=== PATIENT | male | born 1930 | race Caucasian/White ===

== ENCOUNTER 2016-07-07 16:13 | Emergency (ER) | payer MEDICARE, OTHER ==
[~2016-07-07] VITALS: Ht 167.6 cm; Wt 64.4 kg
[2016-07-07 16:19] VITALS: TEMP 98.7; Ht 167.6 cm; Wt 64.4 kg
--- NOTE | 2016-07-07 16:35 | NUR ---
LAB AT BEDSIDE FOR BLOOD DRAW.
[2016-07-07] MEDS ORDERED: MIRT15TA6 PO (16:39)
[2016-07-07] MEDS ORDERED: QUET50TA PO (16:39)
[2016-07-07] MEDS ORDERED: VALS1TAB2 PO (16:39)
[2016-07-07] MEDS ORDERED: ROSU20TA PO (16:40)
--- NOTE | 2016-07-07 16:42 | NUR ---
XRAY PORTABLE XRAY AT BEDSIDE.
[2016-07-07] MEDS ORDERED: UBID100C30 PO (16:45)
[2016-07-07] MEDS ORDERED: QUET200T PO (16:45)
[2016-07-07] MEDS ORDERED: LEVO137T23 PO (16:45)
[2016-07-07] MEDS ORDERED: ASPI-1085 PO (16:45)
[2016-07-07] MEDS ORDERED: [UNRECOGNIZED DRUG - CODE] PO (16:45)
[2016-07-07] MEDS ORDERED: GUAI600T PO (16:45)
[2016-07-07 16:47] LABS: BASOPHILS % (AUTO) 0.4 % (0-2); EOSINOPHILS # (AUTO) 0.1 T/MM3 (0-0.5); EOSINOPHILS % (AUTO) 1.1 % (0-4); HCT - HEMATOCRIT 27.4 % (41-53); HGB - HEMOGLOBIN 8.8 GM/DL (13.5-17.5); IMMATURE GRANULOCYTE # (AUTO) 0.03 T/MM3 (0.00-0.03); IMMATURE GRANULOCYTE % (AUTO) 0.4 % (0.0-0.5); LYMPHOCYTES # (AUTO) 1.5 T/MM3 (1-4.8); LYMPHOCYTES % (AUTO) 17.6 % (23-45); MEAN CORPUSCULAR HGB 27.4 UUG (26-34); MEAN CORPUSCULAR HGB CONC(MCHC 32.1 GM/DL (31-37); MEAN CORPUSCULAR VOLUME 85.4 UM3 (80-100); MONOCYTES # (AUTO) 0.7 T/MM3 (0-0.8); MONOCYTES % (AUTO) 8.7 % (0-9.0); NEUTROPHILS #(AUTO)-ABSOLUTE 5.9 T/MM3 (1.8-7.7); NEUTROPHILS % (AUTO) 71.8 % (33-66); RED BLOOD COUNT 3.21 M/MM3 (4.50-5.90); WBC - WHITE BLOOD COUNT 8.3 T/MM3 (4.5-11.0)
[2016-07-07 16:55] LABS: ACETAMINOPHEN < 10 UG/ML (10-30); ANION GAP 11 MEQ/L (5-15); BUN/CREATININE RATIO 27 RATIO (6-26); CALCIUM 9.1 MG/DL (8.4-10.2); CHLORIDE 101 MEQ/L (98-107); CO2 - CARBON DIOXIDE 29 MEQ/L (22-30); CREATININE 1.2 MG/DL (0.8-1.5); ETHANOL <10 MG/DL (<10); GLOMERULAR FILTRATION RATE 57; GLUCOSE 96 MG/DL (75-110); POTASSIUM 4.3 MEQ/L (3.6-5); SALICYLATE < 1.0 MG/DL (2-20); SODIUM 141 MEQ/L (134-144)
--- NOTE | 2016-07-07 17:28 | ERPDOC ---
Departure Disposition Decision Date: July 07, 2016 Disposition Decision Time: 18:09 Disposition: 02 TO [facility] ACUTE CARE Impression Impression Impression: Primary Impression: Flail chest Encounter type: initial encounter Fracture type: closed Qualified Codes: S22.5XXA - Flail chest, initial encounter for closed fracture Additional Impressions: Rib fractures Encounter type: initial encounter Rib fracture type: multiple ribs Fracture type: closed Laterality: right Qualified Codes: S22.41XA - Multiple fractures of ribs, right side, initial encounter for closed fracture Normocytic anemia Dementia Dementia type: unspecified type Dementia behavioral disturbance: without behavioral disturbance Qualified Codes: F03.90 - Unspecified dementia without behavioral disturbance Severity: Severe Condition: Improved Seen By: Physician only Problems/Meds/Labs Reviewed?: Yes Medications reviewed and manag: Yes Follow up care ordered?: Yes Mental Status: Alert, Confused HPI - Psychosocial General Chief Complaint: Psychiatric Problems Stated Complaint: [facility]CH [facility] Time Seen by MD: 16:15 Source: RN/MD Exam Limitations: dementia HPI - Psychosocial Initial Comments 86yo man referred to the ER for medical clearance. Pt [facility], but needs medical clearance. Pt has numerous falls. Occurred At: home Onset: Constant Severity: moderate Hx of Similar Symptoms: Yes Allergies: Coded Allergies: telithromycin (Verified Allergy, Unknown, 07/07/16) tamsulosin (Verified Adverse Reaction, Severe, agitation, 07/07/16) zolpidem (Verified Adverse Reaction, Severe, sleeplessness, 07/07/16) Past History Unable to Obtain PMH Due to: dementia Review of Systems Unable to Obtain ROS Due to: dementia Physical Exam General General Nourishment: well nourished, well developed, appears stated age, no acute distress, adult, thin General Body Habitus: well groomed Vitals and Pain First Documented Vital Signs Date Time Temp Pulse Resp B/P Pulse Ox O2 Delivery O2 Flow Rate FiO2 07/07/16 16:19 98.7 69 18 121/58 96 Room Air Weight: Kilograms: 64.400 Height (feet): 5 Height (inches): 6.00 Triage Pain Scale: RN VS reviewed by Provider: Yes Eyes (brief) Eyes Brief: found: EOMI, PERRL, not found: scleral icterus Comments B/l cataract removal ENMT (brief) ENMT Brief: FOUND: TM clear, TM good light reflex, ear canals clear, mucosa moist, normal tonsils Neck (brief) Neck: FOUND: trachea midline, NOT FOUND: JVD, adenopathy, thyromegaly Respiratory (brief) Respiratory: FOUND: clear all naylor, equal bilaterally, symmetrical, NOT FOUND : rales, wheezes Cardiovascular (brief) Cardiac: FOUND: regular rate, regular rhythm, NOT FOUND: click, gallop, murmur , pedal edema, peripheral edema, rub Capillary Refill: <2 sec Pulses: all distal extremities, equal, strong Abdomen (brief) Abdominal Brief: FOUND: bowel normo active x4, soft, NOT FOUND: distended, hepatosplenomegaly, pulsatile mass, tender Lymphatic (brief) Lymphatic Brief: NOT FOUND: adenopathy, lymphedema Musculoskeletal (brief) Musculoskeletal Brief: NOT FOUND: deformity, loss of motion, spasm, tenderness Integumentary (brief) Integumentary Brief: FOUND: pink, warm Comments Numerous contusions in various stages of healing. Neurologic (brief) Neurological Brief: FOUND: CN w/o gross def to obs, DTR 2/4 all extremities, motor-no gross deficits, sensory-no gross deficits, NOT FOUND: Babinski, gait w/ o gross def to obs Psychiatric (brief) Psychiatric Brief: FOUND: alert, normal affect, oriented Differential Diagnoses Considering: Anxiety, Delirium, Dementia, Depression, Hallucinations, Acute Psychosis Progress Results/Orders Orders Procedure Category Date Status Time Nothing By Mouth (Ed EDM 07/07/16 Transmitted Only) 16:15 Cbc W/Auto LAB 07/07/16 Complete Diff-Reflex Manual 16:15 Bmp - Basic Metabolic LAB 07/07/16 Complete Panel 16:15 Ethanol LAB 07/07/16 Complete 16:15 Drug Screen LAB 07/07/16 [place] [facility] [place] Acetaminophen LAB 07/07/16 Complete 16:15 Salicylate LAB 07/07/16 Complete 16:15 Ua, Dip Wreflex LAB 07/07/16 Logged Microsc & Facilities Director 16:15 Tsh - Thyroid Stim LAB 07/07/16 Complete Hormone 16:15 Chest 1 View RAD 07/07/16 Taken 16:15 Ribs Right RAD 07/07/16 Taken 17:25 EKG EKG 07/07/16 Logged Lab Results Laboratory Tests Test 07/07/16 16:39 White Blood Count 8.3T/MM3 Red Blood Count 3.21M/MM3 Hemoglobin 8.8GM/DL Hematocrit 27.4% Mean Corpuscular Volume 85.4UM3 Mean Corpuscular Hemoglobin 27.4UUG Mean Corpuscular Hemoglobin Concent 32.1GM/DL RDW Standard Deviation 42.3FL Platelet Count 306T/MM3 Mean Platelet Volume 9.0UM3 Immature Granulocyte % (Auto) 0.4% Neutrophils (%) (Auto) 71.8% Lymphocytes (%) (Auto) 17.6% Monocytes (%) (Auto) 8.7% Eosinophils (%) (Auto) 1.1% Basophils (%) (Auto) 0.4% Absolute Immature Granulocyte (auto 0.03T/MM3 Absolute Neutrophils (auto) 5.9T/MM3 Absolute Lymphocytes (auto) 1.5T/MM3 Absolute Monocytes (auto) 0.7T/MM3 Absolute Eosinophils (auto) 0.1T/MM3 Absolute Basophils (auto) 0.0T/MM3 Turbidity < 20 Sodium Level 141MEQ/L Potassium Level 4.3MEQ/L Chloride Level 101MEQ/L Carbon Dioxide Level 29MEQ/L Anion Gap 11MEQ/L Blood Urea Nitrogen 32.0MG/DL Creatinine 1.2MG/DL Glomerular Filtration Rate Calc 57 BUN/Creatinine Ratio 27RATIO Glucose Level 96MG/DL Calculated Osmolality 278MOSM/KG Calcium Level 9.1MG/DL Icterus Index < 2 Thyroid Stimulating Hormone (TSH) 6.43MIU/L Chemistry Specimen Hemolysis < 15 Salicylates Level < 1.0MG/DL Acetaminophen Level < 10UG/ML Alcohol, Quantitative <10MG/DL EKG EKG : Rate: 60-100 Rhythm: sinus [place]: normal QRS: normal Intervals: normal ST/T: normal Interpreted by: signing physician Consult/PCP Consult/PCP #1: Physician Contacted: Robert Cruz Time Called: 17:15 Type of discussion: Phone Consult/PCP Consult/PCP #2: Physician Contacted: Hospitalist Time Called: 17:43 Time of first response: 17:50 Type of discussion: Phone Consult/PCP Discussion Details Recommends txfr to trauma service. Consult/PCP #3: Physician Contacted: [facility] Time Called: 18:00 Time of first response: 18:05 Type of discussion: Admit Discussion/PCP Discussion Details Dr. Gallardo - trauma accepts for txfr. Recommends having EOL discussions with prior to txfr. Xray Xray : Xray: CXR Portable Interpretation: Abnormal (Posteriorly fx'ed right 4-8 ribs.), Interpreted by NAUN Ford DO July 07, 2016 17:28
--- NOTE | 2016-07-07 17:29 | NUR ---
PROVIDER DR. TORRES AT BEDSIDE.
[2016-07-07 17:36] LABS: THYROID STIM HORMONE-TSH 6.43 MIU/L (0.47-4.68)
--- NOTE | 2016-07-07 17:40 | NUR ---
RADIOLOGY PT TO RADIOLOGY BY CART AT THIS TIME.
--- NOTE | 2016-07-07 17:53 | NUR ---
RETURN PT RETURNED FROM RADIOLOGY BY CART AT THIS TIME.
--- NOTE | 2016-07-07 18:19 | NUR ---
PROVIDER DR. TORRES AT BEDSIDE TO SPEAK WITH SPOUSE.
--- NOTE | 2016-07-07 18:54 | NUR ---
REPORT CALLED TO EDGARDO, TRAUMA RN AT [facility]. DENIES QUESTIONS. ADVISED ETA OF 184.
--- NOTE | 2016-07-07 18:55 | NUR ---
[facility] REQUESTED FOR TRANSFER TO [facility] AT THIS TIME.
--- NOTE | 2016-07-07 19:06 | NUR ---
EMS ARRIVED TO ER, TB. REPORT GIVEN TO EMS PERSONNEL AT THIS TIME, DENY QUESTIONS.
[2016-07-07 19:11] VITALS: BP 143/75; PULSE 76; RESP 18; O2SAT 93
--- NOTE | 2016-07-07 19:11 | NUR ---
TRANSFER PT EXITS ER BY CART PER [facility] FOR TRANSFER AT THIS TIME.
--- NOTE | 2016-07-08 07:57 | DI ---
Indication: ITS.REASON: Posteriorly fx'ed ribs; eval for flail PROCEDURE: RIBS RIGHT: Encounter: Initial Comparison: None Findings: There are displaced fractures of the right third and fifth through 11th lateral ribs. The 7th through 10th ribs appear to be fractured in at least two separate places which raises concern for a flail segment. No gross pneumothorax identified. Scoliosis and degenerative change in the spine. Impression: Multiple rib fractures with concern for a flail segment. .
--- NOTE | 2016-07-08 08:01 | DI ---
Indication: ITS.REASON: Medical clearance PROCEDURE: CHEST 1 VIEW: Encounter: Initial Comparison: Rib radiographs from the same time Findings: No pneumothorax. Portions of the lung apex are obscured by overlapping soft tissues. Trace pleural effusions. No focal consolidative pneumonia. Cardiac silhouette is mildly enlarged. Mediastinal contours are normal. Multiple right rib fractures better evaluated on the dedicated rib radiographs. Impression: Multiple right rib fractures. .
[2016-07-08] MEDS ORDERED: MEMA28CA PO (18:25)
[2016-07-08] MEDS ORDERED: ATRO2DRO4 SL (18:25)
[2016-07-08] MEDS ORDERED: OXYB5SYR2 PO (18:25)
[2016-07-08] MEDS ORDERED: TRAM50TA4 PO (18:25)
== END 2016-07-07 19:11 | disposition short-term general hospital (02) ==
LOC: ED 16:13
DX: Z04.6 Encounter for general psychiatric examination, requested by authority (principal); F03.90 Unspecified dementia, unspecified severity, without behavioral disturbance, psychotic disturbance, mood disturbance, and anxiety; S22.5XXA Flail chest, initial encounter for closed fracture; D64.9 Anemia, unspecified; W19.XXXA Unspecified fall, initial encounter; Y93.9 Activity, unspecified; Y92.009 Unspecified place in unspecified non-institutional (private) residence as the place of occurrence of the external cause; Y99.8 Other external cause status; Z79.82 Long term (current) use of aspirin; Z79.899 Other long term (current) drug therapy
CPT/HCPCS: 36415; 80048; 80307; 84443; 85025; 93005

== ENCOUNTER 2016-07-08 17:00 | Inpatient (IN) ==
[2016-07-14] MEDS ORDERED: ACETAMINOPHEN 325 MG TABLET PO PRN (10:29)
[2016-07-14] MEDS ORDERED: HALOPERIDOL 0.5 MG TABLET PO PRN (10:39)
[2016-07-14] MEDS ORDERED: LORazepam 0.5 MG TABLET PO PRN (10:40)
[2016-07-14] MEDS ORDERED: TRAMADOL 50 MG TABLET PO PRN (10:43)
[2016-07-15] MEDS ORDERED: HALOPERIDOL 5 MG/ML INJECTION IM PRN (05:00)
[2016-07-15] MEDS ORDERED: LORazepam 0.5 MG TABLET PO PRN (05:00)
[2016-07-15] MEDS ORDERED: ATROPINE 1% DROPS SL PRN (05:00)
[2016-07-15] MEDS ORDERED: HALOPERIDOL 0.5 MG TABLET PO PRN (05:00)
[2016-07-15] MEDS ORDERED: TRAMADOL 50 MG TABLET PO PRN (05:00)
[2016-07-15] MEDS ORDERED: ACETAMINOPHEN 325 MG TABLET PO PRN (05:00)
[2016-07-15] MEDS ORDERED: LEVOTHYROXINE 137 MCG TABLET PO SCH (06:30)
[2016-07-15] MEDS ORDERED: MEMANTINE 10 MG TABLET PO SCH (09:00)
[2016-07-15] MEDS ORDERED: OMEGA-3 ACID ESTERS 1 GM CAPSULE PO SCH (09:00)
[2016-07-15] MEDS ORDERED: DIVALPROEX SPRINKLE 125 MG CAPSULE PO SCH (09:00)
[2016-07-15] MEDS ORDERED: GUAIFENESIN LA 600 MG TABLET PO SCH (09:00)
[2016-07-15] MEDS ORDERED: COENZYME Q10 200 MG PO SCH (09:00)
[2016-07-15] MEDS ORDERED: FINASTERIDE 5 MG TABLET PO SCH (09:00)
[2016-07-15] MEDS ORDERED: QUETIAPINE 200 MG TABLET PO SCH (21:00)
[2016-07-15] MEDS ORDERED: MIRTAZAPINE 30 MG TABLET PO SCH (21:00)
[2016-07-19] MEDS ORDERED: ROSUVASTATIN 20 MG TABLET PO SCH (21:00)
== END 2016-07-14 19:40 | disposition short-term general hospital (02) | DRG 884 ==
LOC: GEN 17:00
PROVIDERS: ADMIT Psychiatry & Neurology Psychiatry; ATTEND Psychiatry & Neurology Psychiatry

== ENCOUNTER 2016-07-14 19:35 | Observation (INO) ==
[2016-07-15] MEDS ORDERED: NS 1,000 ML IV SCH (05:00)
[2016-07-15] MEDS ORDERED: TRAMADOL 50 MG TABLET PO PRN (05:00)
[2016-07-15] MEDS ORDERED: ONDANSETRON 4 MG/2 ML INJECTION IVP PRN (05:00)
[2016-07-15] MEDS ORDERED: ATROPINE 1% DROPS SL PRN (05:00)
[2016-07-15] MEDS ORDERED: VANCOMYCIN 250mg/5ml ORAL LIQ PO SCH (09:00)
[2016-07-15] MEDS: DIVALPROEX SPRINKLE 125 MG CAPSULE PO SCH ×2 (09:21→21:34)
[2016-07-15] MEDS: LACTOBACILLUS (15B cfu) CAPSULE PO SCH ×3 (09:21→18:04)
[2016-07-15] MEDS: LEVOTHYROXINE 137 MCG TABLET PO SCH (09:21)
[2016-07-15] MEDS: MEMANTINE 10 MG TABLET PO SCH ×2 (09:21→21:34)
--- NOTE | 2016-07-15 10:08 | History & Physical Report ---
<Azul Obrien V - Last Filed: 07/15/16 10:05> History of Present Illness Date: Chief complaint: C-Diff HPI: Angel is an 86-year-old male with known history of dementia [facility] for evaluation of behavioral changes. He could prior to this he resided at home with his in [place], [place]. They reported increasing behaviors with combative and impulsiveness. He had suffered multiple falls and was hospitalized at [facility] on as a trauma. He was found to have multiple rib fractures with a questionable flail segment, however, these were ruled out and thought to be old. Once he was medically stable he was discharged and transferred to the [facility]. Yesterday . Patient began to have loose stools including an incontinent stool. He was tested for C. difficile, which was resulted as positive. Given this acute finding, patient was transferred to inpatient medical unit under the care of the hospitalist services overnight. Patient is seen this morning with nursing staff at his side during breakfast. He is alert and makes eye contact, however, does not speak during examination. Nursing staff reports patient has had 1 stool this morning. Review of Systems ROS unobtainable: due to mental status Review of systems: Able to obtain due to dementia PFSH Hypertension Hyperlipidemia BPH Coronary artery disease Hypothyroidism Chronic dysphagia Vitamin B12 deficiency Dementia History of stroke with chronic dysphagia Surgical History: Kidney stone removal. Stress echocardiography 05/31/13. Heart monitor 08/2015. 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 RAF carotid study 09/29/15 Family History: Unable to obtain from patient H&P from 02/2016 indicated that his mother and father both had HTN and CAD. One sibling has Parkinson's. Children are all alive and healthy. Smoking status: Unknown if ever smoked Substance use type: does not use Alcohol intake frequency: does not drink Housing: house Household members: spouse Current occupational status: retired Medications Home Medications Medication Instructions Recorded Confirmed Type Levothyroxine Tab [Synthroid] 137 mcg PO ACB #0 07/07/16 History Mirtazapine 30 mg PO HS #0 07/07/16 History [place]-3 Fatty Acids/Fish Oil [Fish 1,000 mg PO BID #0 07/07/16 History Oil 1,000 mg Softgel] Quetiapine [SEROquel] 200 mg PO HS #0 07/07/16 History Rosuvastatin Calcium [Crestor] 20 mg PO WEEKLY #0 07/07/16 History Ubidecarenone [Co Q10] 100 mg PO DAILY #0 07/07/16 History guaiFENesin [Mucinex] 600 mg PO BID #0 07/07/16 History Atropine Sulfate 1 drop SL PRN #0 07/08/16 History Tramadol HCl 50 mg PO Q6HR PRN #0 tab 07/08/16 History Atropine Sulfate 1 drop SL PRN PRN 07/14/16 07/14/16 History Co Q10 100 mg PO DAILY 07/14/16 07/14/16 History Diovan Hct 80/12.5 0.5 tab PO Q2D 07/14/16 07/14/16 History Fish Oil 1,000 mg Softgel 1,000 mg PO BID 07/14/16 07/14/16 History Levothyroxine Sodium 137 mcg PO ACB 07/14/16 07/14/16 History Memantine HCl [Namenda Xr] 28 mg PO DAILY 07/14/16 07/14/16 History Mirtazapine [Remeron] 30 mg PO HS 07/14/16 07/14/16 History Mucinex 600 mg PO BID 07/14/16 07/14/16 History Oxybutynin Chloride 5 mg PO DAILY 07/14/16 07/14/16 History Quetiapine Fumarate 50 mg PO DAILY 07/14/16 07/14/16 History Quetiapine Fumarate 200 mg PO HS 07/14/16 07/14/16 History Rosuvastatin [Crestor] 20 mg PO WEEKLY 07/14/16 07/14/16 History Tramadol HCl 50 - 100 mg PO Q6H PRN 07/14/16 07/14/16 History Allergies Allergy/AdvReac Type Severity Reaction Status Date / Time telithromycin Allergy Unknown Verified 07/14/16 13:47 tamsulosin AdvReac Severe agitation Verified 07/14/16 13:47 zolpidem AdvReac Severe sleeplessne Verified 07/14/16 13:47 ss Exam Vital Signs: Temp Pulse Resp BP Pulse Ox 96.2 F L 99 18 148/78 H 92 07/15/16 07:12 07/15/16 07:12 07/15/16 07:12 07/15/16 07:12 07/15/16 07:12 Height: 1.42 m Weight: 63.3 kg Body Mass Index: 31.1 - Constitutional Present: no acute distress - Routine HEENT Exam Head: Present: normocephalic Eye: Present: EOMI, PERRL - Routine Neck Exam Present: supple, full ROM - Routine Respiratory Exam Present: CTA bilaterally - Routine Cardiovascular Exam Present: RRR, S1, S2 - Routine Abdominal Exam Present: soft, normoactive bowel sounds, non distended, non tender. Absent: tenderness - Routine Extremities Exam Present: full ROM - Routine Back/Spine/Pelvis Exam Back/Spine: Present: full ROM - Routine Skin Exam Present: intact - Routine Neurological Exam Present: alert, CN II-XII intact - Routine Psychiatric Exam Present: normal affect Results - Labs CBC & Chem 7: 07/15/16 04:54 07/15/16 04:54 Labs: Short CBC 07/15/16 Range/Units 04:54 WBC 6.0 (4.5-11.0) T/MM3 Hgb 8.7 L (13.5-17.5) GM/DL Hct 27.2 L (41-53) % Plt Count 330 (130-400) T/MM3 [facility] 07/15/16 04:54 Sodium 141 Potassium 4.2 Chloride 101 Carbon Dioxide 29 BUN 23.0 H Creatinine 1.1 Glucose 88 Calcium 8.8 Assessment and Plan (1) C. difficile colitis Current visit: Yes Status: Acute (2) HTN (hypertension) Current visit: Yes Status: Chronic (3) Hyperlipemia Current visit: Yes Status: Chronic (4) BPH (benign prostatic hyperplasia) Current visit: Yes Status: Chronic (5) CAD (coronary artery disease) Current visit: Yes Status: Chronic (6) Hx of renal calculi Current visit: Yes Status: Resolved (7) Hearing loss Current visit: Yes Status: Acute (8) Vitamin B12 deficiency Current visit: Yes Status: Chronic (9) Dysphagia Current visit: Yes Status: Chronic (10) Dementia Current visit: Yes Status: Chronic DVT Prophylaxis: SCD's Assessment and Plan: Patient was admitted as an inpatient overnight under the care of telemedicine, Dr. Chou. Generalized contact precautions implemented Patient was started on oral vancomycin for acute treatment as well as probiotics. It is reported that patient did have a recent course of Keflex Did review this morning's laboratory studies white count is normal at 6.0, hemoglobin 8.7 Continue with Seroquel 200 milligrams by mouth at at bedtime for behaviors which was started on the [facility]. Did speak with infectious disease nurse. Patient will need to have 48 hours of continent stools in order to return to [facility]. Will discuss further orders and plan of care with attending, Dr.'s Ferreira Sepsis Assessment - Evaluation Sepsis screening result: No Definite Risk - Focused Exam Vital Signs Temp Pulse Resp BP Pulse Ox 07/15/16 07:12 96.2 F L 99 18 148/78 H 92 Hospital Course Summary Disclaimer: The visit summary below is not to be considered part of the above Progress Note. <Ana Ferreira - Last Filed: 07/15/16 13:33> History of Present Illness Date: Exam Vital Signs: Temp Pulse Resp BP Pulse Ox 98.5 F 61 18 178/77 H 94 07/15/16 11:30 07/15/16 11:30 07/15/16 07:12 07/15/16 11:30 07/15/16 11:30 Height: 1.42 m Weight: 63.3 kg Results - Labs CBC & Chem 7: 07/15/16 04:54 07/15/16 04:54 Labs: Short CBC 07/15/16 Range/Units 04:54 WBC 6.0 (4.5-11.0) T/MM3 Hgb 8.7 L (13.5-17.5) GM/DL Hct 27.2 L (41-53) % Plt Count 330 (130-400) T/MM3 BMP 07/15/16 04:54 Sodium 141 Potassium 4.2 Chloride 101 Carbon Dioxide 29 BUN 23.0 H Creatinine 1.1 Glucose 88 Calcium 8.8 Assessment and Plan Assessment and Plan: S: Pt not really able to communicate well but denies abd pain. O: Gen: alert and awake Abd: non tender, mildly distended Ext: edema, no clubbing A/P: No WBC count elevation, no Cr elevation, mild c. diff infection if present at all, will switch to flagyl as vanc not indicated for mild c. diff Pt seen and examined independently and plan of care discussed with [facility]. Sepsis Assessment - Focused Exam Vital Signs Temp Pulse Resp BP Pulse Ox 07/15/16 11:30 98.5 F 61 178/77 H 94 07/15/16 07:12 96.2 F L 99 18 148/78 H 92 Hospital Course Summary Disclaimer: The visit summary below is not to be considered part of the above Progress Note.
[2016-07-15] MEDS: MetroNIDAZOLE 500 MG TABLET PO SCH (18:04)
[2016-07-15] MEDS: NS 1,000 ML IV SCH (18:05)
[2016-07-15] MEDS: OXYCODONE/APAP 5 MG/325 MG TABLET PO PRN (21:35)
[2016-07-15] MEDS ORDERED: QUETIAPINE 200 MG TABLET PO SCH (22:00)
[2016-07-15] MEDS ORDERED: MIRTAZAPINE 30 MG TABLET PO SCH (22:00)
[2016-07-15] MEDS ORDERED: FINASTERIDE 5 MG TABLET PO SCH (22:00)
[2016-07-16] MEDS: NS 1,000 ML IV SCH (04:59)
[2016-07-16] MEDS: LEVOTHYROXINE 137 MCG TABLET PO SCH (06:19)
[2016-07-16] MEDS: DIVALPROEX SPRINKLE 125 MG CAPSULE PO SCH (09:58)
[2016-07-16] MEDS: MEMANTINE 10 MG TABLET PO SCH (09:59)
[2016-07-16] MEDS: OXYCODONE/APAP 5 MG/325 MG TABLET PO PRN (09:59)
[2016-07-16] MEDS: LACTOBACILLUS (15B cfu) CAPSULE PO SCH (09:59)
[2016-07-16] MEDS: MetroNIDAZOLE 500 MG TABLET PO SCH (09:59)
--- NOTE | 2016-07-16 10:35 | Discharge Summary ---
<Azul Obrien V - Last Filed: 07/16/16 10:08> Discharge Information Date of admission: 07/14/16 21:57 Anticipated date of discharge: 07/16/16 Attending Physician: Jose Chou MD - Discharge Diagnosis (1) HTN (hypertension) Status: Chronic (2) Hyperlipemia Status: Chronic (3) BPH (benign prostatic hyperplasia) Status: Chronic (4) CAD (coronary artery disease) Status: Chronic (5) Hx of renal calculi Status: Resolved (6) Hearing loss Status: Chronic (7) Vitamin B12 deficiency Status: Chronic (8) Dysphagia Status: Chronic (9) Dementia Status: Chronic (10) C. difficile colitis Status: Acute - Procedures Procedures: None - Laboratory Labs: 07/15/16 04:54 07/15/16 04:54 - Microbiology None - Radiology Radiology: None History of Present Illness HPI: Angel is an 86-year-old male with known history of dementia [facility] 07[facility]16 for evaluation of behavioral changes. He could prior to this he resided at home with his in [place], [place]. They reported increasing behaviors with combative and impulsiveness. He had suffered multiple falls and was hospitalized at [facility] on as a trauma. He was found to have multiple rib fractures with a questionable flail segment, however, these were ruled out and thought to be old. Once he was medically stable he was discharged and transferred to the [facility]. Yesterday . Patient began to have loose stools including an incontinent stool. He was tested for C. difficile, which was resulted as positive. Given this acute finding, patient was transferred to inpatient medical unit under the care of the hospitalist services overnight. Patient is seen this morning with nursing staff at his side during breakfast. He is alert and makes eye contact, however, does not speak during examination. Nursing staff reports patient has had 1 stool this morning. Hospital Course Hospital course: Mr. Dawson is a 86 year old male who was admitted yesterday for a positive C- diff. He was started on oral Flagyl and Culturelle. He has not had any further incontinent stools. Plan to be [facility] to [facility]. He will be discharged to continue with 7 days of Flagyl. DVT Prophylaxis: SCD's Discharge Plan - Med Rec/Dispo Raul Instructions: Clostridium Difficile Infection (DC) Prescriptions: New Finasteride [Proscar] 5 mg PO HS #30 MetroNIDAZOLE [Flagyl] 500 mg PO TIDWM #21 tablet Acidoph/L.bulg/Bif.b/S.thermop [Bacid Caplet] 2 cap PO TIDWM Continue Diovan Hct 80/12.5 0.5 tab PO Q2D #30 Memantine HCl [Namenda] 10 mg PO BID 30 Days Quetiapine [SEROquel] 200 mg PO HS #30 Divalproex Sprinkle [Depakote Sprinkle] 250 mg PO BID 30 Days Levothyroxine Sodium 137 mcg PO ACB #30 Mirtazapine [Remeron] 30 mg PO HS #30 Tramadol HCl 50 - 100 mg PO Q6H PRN #30 PRN Reason: Pain Discontinued Memantine HCl [Namenda Xr] 28 mg PO DAILY No Action Atropine Sulfate 1 drop SL PRN PRN PRN Reason: Prn Orders Fish Oil 1,000 mg Softgel 1,000 mg PO BID Quetiapine Fumarate 200 mg PO HS Rosuvastatin [Crestor] 20 mg PO WEEKLY Mirtazapine 30 mg PO HS #0 Rosuvastatin Calcium [Crestor] 20 mg PO WEEKLY #0 guaiFENesin [Mucinex] 600 mg PO BID #0 Atropine Sulfate 1 drop SL PRN #0 Finasteride 5 mg PO DAILY 30 Days Mucinex 600 mg PO BID Oxybutynin Chloride 5 mg PO DAILY Quetiapine Fumarate 50 mg PO DAILY Co Q10 100 mg PO DAILY Levothyroxine Tab [Synthroid] 137 mcg PO ACB #0 [place]-3 Fatty Acids/Fish Oil [Fish Oil 1,000 mg Softgel] 1,000 mg PO BID #0 Ubidecarenone [Co Q10] 100 mg PO DAILY #0 Tramadol HCl 50 mg PO Q6HR PRN #0 tab PRN Reason: PAIN - Disposition 01 Discharged Home, Self-Care <Ana Ferreira - Last Filed: 07/16/16 11:46> Discharge Information Date of admission: 07/14/16 21:57 Attending Physician: Jose Chou MD - Discharge Diagnosis (1) HTN (hypertension) Status: Chronic (2) Hyperlipemia Status: Chronic (3) BPH (benign prostatic hyperplasia) Status: Chronic (4) CAD (coronary artery disease) Status: Chronic (5) Hx of renal calculi Status: Resolved (6) Hearing loss Status: Chronic (7) Vitamin B12 deficiency Status: Chronic (8) Dysphagia Status: Chronic (9) Dementia Status: Chronic (10) C. difficile colitis Status: Acute - Laboratory Labs: 07/15/16 04:54 07/15/16 04:54 Hospital Course Hospital course: Pt did well and it is very questionable if really even had C. diff as he had no WBC or Cr elevation and minimal amounts of loose BM's. It is possible he was just colonized. Discharging to [facility], doing well on day of discharge.
[2016-07-19] MEDS ORDERED: ROSUVASTATIN 20 MG TABLET PO SCH (22:00)
== END 2016-07-16 11:04 | disposition home or self-care (01) ==
LOC: MED 21:57 → INTOOBSV 21:57
PROVIDERS: ADMIT Hospitalist; ATTEND Hospitalist